=== PATIENT | female | born 1980 | race Caucasian/White ===

== ENCOUNTER 2023-03-30 04:20 | Inpatient (IN) | payer OTHER ==
[2023-03-28 16:52] VITALS: BMI 26.6
[2023-03-30] MEDS ORDERED: PAPAVERINE HCL 30 MG/1 ML 10 ML VIAL NR ONE ×2 (07:11→07:35)
[2023-03-30] MEDS ORDERED: BUPIVACAINE HCL/PF 0.25% (2.5MG/ML) 10 ML VIAL ONE (07:11)
[2023-03-30] MEDS ORDERED: HEPARIN NA (PORCINE) 5,000 UNITS/ML 1ML VIAL ONE (07:12)
[2023-03-30] MEDS ORDERED: BUPIVACAINE LIPOSOME/PF (EXPAREL) 266 MG/20 ML VIAL ONE (07:12)
[2023-03-30] MEDS ORDERED: HEPARIN NA (PORCINE) 5,000 UNITS/ML 1ML VIAL SQ ONE ×3 (08:00→09:00)
[2023-03-30] MEDS ORDERED: FENTANYL CITRATE/PF 50 MCG/ML VIAL ONE ×7 (08:10→15:26)
[2023-03-30] MEDS ORDERED: ROCURONIUM BROMIDE 50 MG/5 ML SYRINGE ONE ×3 (08:10→12:10)
[2023-03-30] MEDS ORDERED: PROPOFOL 20 ML ONE (08:10)
[2023-03-30] MEDS ORDERED: ceFAZolin SODIUM 1 GM VIAL IVPB ONE (08:23)
[2023-03-30] MEDS ORDERED: LABETALOL HCL 20 MG/4 ML VIAL ONE (09:12)
[2023-03-30] MEDS ORDERED: DEXAMETHASONE SOD PHOSPHATE 4 MG/1 ML VIAL ONE (10:56)
[2023-03-30] MEDS ORDERED: KETOROLAC TROMETHAMINE 30 MG/1 ML VIAL ONE (10:56)
[2023-03-30] MEDS ORDERED: ONDANSETRON 4 MG/2 ML VIAL ONE (10:56)
[2023-03-30] MEDS ORDERED: ceFAZolin SODIUM 1 GM VIAL ONE ×2 (10:56)
[2023-03-30] MEDS ORDERED: NEOSTIGMINE METHYLSULFATE 0.5 MG/1 ML - 10 ML MDV ONE (13:34)
[2023-03-30] MEDS ORDERED: GLYCOPYRROLATE 0.2 MG/1 ML VIAL ONE (13:34)
[2023-03-30] MEDS ORDERED: BUPIVACAINE LIPOSOME/PF (EXPAREL) 266 MG/20 ML VIAL NR ONE (13:42)
[2023-03-30] MEDS ORDERED: BUPIVACAINE HCL/PF 0.25% (2.5MG/ML) 10 ML VIAL IJ ONE (13:42)
[2023-03-30] MEDS ORDERED: MIDAZOLAM HCL 2 MG/2 ML SINGLE DOSE VIAL ONE (13:52)
[2023-03-30] MEDS ORDERED: diazePAM 5 MG TABLET PO PRN (14:10)
[2023-03-30] MEDS ORDERED: oxyCODONE HCL 5 MG TABLET PO PRN (14:13)
[2023-03-30] MEDS ORDERED: ONDANSETRON 4 MG/2 ML VIAL IVPUSH PRN (14:13)
[2023-03-30] MEDS ORDERED: LACTATED RINGERS SOLUTION 1,000 ML IV SCH (14:15)
[2023-03-30] MEDS: oxyCODONE HCL 5 MG TABLET PO PRN ×2 (16:20→20:45)
[2023-03-30] MEDS: DEXTROSE 5%-0.45% SALINE 1,000 ML IV SCH (16:21)
[2023-03-30] MEDS: CEFAZOLIN 1 GM in DEXTROSE 5%-WATER - 50 ML IVPB SCH (17:54)
[2023-03-30] MEDS: MUPIROCIN CA 2% TOPICAL CREAM 15 GM TUBE TP SCH (21:38)
[2023-03-30] MEDS ORDERED: DOCUSATE SODIUM 100 MG CAPSULE (FP) PO SCH (22:00)
[2023-03-30] MEDS ORDERED: SILVER SULFADIAZINE 1% TOP CREAM 50 GM JAR TP SCH (22:00)
[2023-03-30] MEDS ORDERED: ACETAMINOPHEN 1000 MG/100 ML BAG IVPB ONE (22:42)
[2023-03-31] MEDS: CEFAZOLIN 1 GM in DEXTROSE 5%-WATER - 50 ML IVPB SCH ×3 (00:05→11:00)
[2023-03-31] MEDS: oxyCODONE HCL 5 MG TABLET PO PRN ×3 (02:10→12:50)
[2023-03-31 08:34] LABS: BASO % 0.3 % (0-2.0); EOS % 5.2 % (0-4.5); HEMATOCRIT 27.6 % (32.4-45.2); HEMOGLOBIN 8.9 GM/dL (10.7-15.3); MCH 24.8 pg (25.7-33.7); MCHC 32.3 g/dl (32.0-36.0); MEAN CELL VOLUME 76.6 fl (80-96); MEAN PLT VOLUME 7.9 fl (7.5-11.1); MONO % 10.2 % (3.8-10.2); NEUT % 67.3 % (42.8-82.8); PLATELET COUNT 264 10^3/uL (134-434); RBC 3.61 M/mm3 (3.60-5.2); WHITE BLOOD COUNT 4.9 K/mm3 (4.0-10.0)
[2023-03-31 08:37] LABS: POTASSIUM 3.6 mmol/L (3.5-5.1)
[2023-03-31 08:41] LABS: CALCIUM 7.8 mg/dL (8.5-10.1)
[2023-03-31 08:42] LABS: ALBUMIN 2.6 g/dl (3.4-5.0); BLOOD UREA NITROGEN 7.2 mg/dL (7-18); MAGNESIUM 1.9 mg/dL (1.8-2.4)
[2023-03-31 08:45] LABS: CREATININE 0.6 mg/dL (0.55-1.3); PHOSPHOROUS 4.3 mg/dL (2.5-4.9)
[2023-03-31 08:46] LABS: BILIRUBIN,TOTAL 1.1 mg/dL (0.2-1); TOT PROT 6.2 g/dl (6.4-8.2)
[2023-03-31] MEDS: ANASTROZOLE 1 MG TABLET PO SCH (09:43)
[2023-03-31] MEDS: ASPIRIN 325 MG TABLET PO SCH (09:43)
[2023-03-31] MEDS: DOCUSATE SODIUM 100 MG CAPSULE (FP) PO SCH (09:44)
[2023-03-31] MEDS: FERROUS SO4 325 MG TABLET (FP) PO SCH (09:44)
[2023-03-31] MEDS: ENOXAPARIN NA (PORCINE) 40 MG/0.4 ML DISP.SYRIN SQ SCH (09:44)
[2023-03-31] MEDS: MUPIROCIN CA 2% TOPICAL CREAM 15 GM TUBE TP SCH ×2 (09:44→21:48)
[2023-03-31 10:46] LABS: HEMOGLOBIN 8.9 GM/dL (10.7-15.3); MCH 25.1 pg (25.7-33.7); MCHC 32.9 g/dl (32.0-36.0); MEAN CELL VOLUME 76.3 fl (80-96); MEAN PLT VOLUME 7.3 fl (7.5-11.1); PLATELET COUNT 261 10^3/uL (134-434); RBC 3.53 M/mm3 (3.60-5.2); RDW 19.9 % (11.6-15.6); WHITE BLOOD COUNT 4.5 K/mm3 (4.0-10.0)
[2023-03-31] MEDS: DEXTROSE 5%-0.45% SALINE 1,000 ML IV SCH (18:50)
[2023-04-01] MEDS: oxyCODONE HCL 5 MG TABLET PO PRN ×6 (00:09→21:39)
[2023-04-01] MEDS: DEXTROSE 5%-0.45% SALINE 1,000 ML IV SCH ×2 (02:51→19:34)
[2023-04-01 06:37] LABS: BASO % 0.4 % (0-2.0); EOS % 4.4 % (0-4.5); HEMATOCRIT 27.8 % (32.4-45.2); LYMPH % 13.3 % (8-40); MCH 24.9 pg (25.7-33.7); MCHC 32.3 g/dl (32.0-36.0); MEAN PLT VOLUME 7.6 fl (7.5-11.1); MONO % 9.1 % (3.8-10.2); NEUT % 72.8 % (42.8-82.8); PLATELET COUNT 268 10^3/uL (134-434); RBC 3.61 M/mm3 (3.60-5.2); RDW 19.7 % (11.6-15.6); WHITE BLOOD COUNT 6.3 K/mm3 (4.0-10.0)
[2023-04-01 06:52] LABS: POTASSIUM 3.4 mmol/L (3.5-5.1)
[2023-04-01 06:56] LABS: ALBUMIN 2.6 g/dl (3.4-5.0); BLOOD UREA NITROGEN 5.5 mg/dL (7-18); CALCIUM 7.7 mg/dL (8.5-10.1); MAGNESIUM 1.7 mg/dL (1.8-2.4)
[2023-04-01 07:00] LABS: CREATININE 0.5 mg/dL (0.55-1.3); PHOSPHOROUS 3.6 mg/dL (2.5-4.9)
[2023-04-01 07:01] LABS: BILIRUBIN,TOTAL 1.1 mg/dL (0.2-1); TOT PROT 6.3 g/dl (6.4-8.2)
[2023-04-01] MEDS ORDERED: MAGNESIUM SULF 50% (8.12 MEQ/2 ML-1 GM VIAL) IVPB ONE (08:02)
[2023-04-01] MEDS: KCL 10 MEQ IVPB 10 MEQ/100 ML INFUS.BAG IVPB SCH ×4 (09:05→19:02)
[2023-04-01] MEDS: DOCUSATE SODIUM 100 MG CAPSULE (FP) PO SCH (09:10)
[2023-04-01] MEDS: ANASTROZOLE 1 MG TABLET PO SCH (09:10)
[2023-04-01] MEDS: ASPIRIN 325 MG TABLET PO SCH (09:10)
[2023-04-01] MEDS: FERROUS SO4 325 MG TABLET (FP) PO SCH (09:10)
[2023-04-01] MEDS: ENOXAPARIN NA (PORCINE) 40 MG/0.4 ML DISP.SYRIN SQ SCH (09:11)
[2023-04-01] MEDS: POLYETHYLENE GLYCOL (HEALTHYLAX) 3350 17 GM PACKET PO SCH (09:29)
[2023-04-01] MEDS: MUPIROCIN CA 2% TOPICAL CREAM 15 GM TUBE TP SCH ×2 (14:24→21:38)
[2023-04-01] MEDS ORDERED: POTASSIUM CHLORIDE TABS 20 MEQ TABLET.ER (FP) PO ONE (16:30)
[2023-04-02] MEDS: oxyCODONE HCL 5 MG TABLET PO PRN ×3 (05:48→22:14)
[2023-04-02] MEDS: ANASTROZOLE 1 MG TABLET PO SCH (10:00)
[2023-04-02] MEDS: DOCUSATE SODIUM 100 MG CAPSULE (FP) PO SCH (10:01)
[2023-04-02] MEDS: FERROUS SO4 325 MG TABLET (FP) PO SCH (10:01)
[2023-04-02] MEDS: ENOXAPARIN NA (PORCINE) 40 MG/0.4 ML DISP.SYRIN SQ SCH (10:01)
[2023-04-02] MEDS: ASPIRIN 325 MG TABLET PO SCH (10:01)
[2023-04-02] MEDS: POLYETHYLENE GLYCOL (HEALTHYLAX) 3350 17 GM PACKET PO SCH (10:02)
[2023-04-02] MEDS: MUPIROCIN CA 2% TOPICAL CREAM 15 GM TUBE TP SCH (10:04)
[2023-04-02] MEDS ORDERED: oxyCODONE HCL 5 MG TABLET PO PRN (13:08)
[2023-04-02] MEDS ORDERED: diazePAM 5 MG TABLET PO PRN (13:08)
[2023-04-02] MEDS ORDERED: ACETAMINOPHEN 325 MG TABLET (FP) PO PRN (13:58)
[2023-04-03] MEDS: oxyCODONE HCL 5 MG TABLET PO PRN ×2 (07:45→13:29)
[2023-04-03] MEDS ORDERED: ENOXAPARIN NA (PORCINE) 40 MG/0.4 ML DISP.SYRIN SQ SCH (10:00)
[2023-04-03] MEDS ORDERED: DOCUSATE SODIUM 100 MG CAPSULE (FP) PO SCH (10:00)
[2023-04-03] MEDS ORDERED: ANASTROZOLE 1 MG TABLET PO SCH (10:00)
[2023-04-03] MEDS ORDERED: FERROUS SO4 325 MG TABLET (FP) PO SCH (10:00)
[2023-04-03] MEDS ORDERED: ASPIRIN 325 MG TABLET PO SCH (10:00)
[2023-04-03] MEDS: POLYETHYLENE GLYCOL (HEALTHYLAX) 3350 17 GM PACKET PO SCH (10:21)
[2023-04-03 13:43] VITALS: BP 119/73; PULSE 73; RESP 18; TEMP 98.3
== END 2023-04-03 14:59 | disposition home or self-care (01) | DRG 850 ==
LOC: J2C 04:20 → JICU 16:17 → J4S 04-02 12:26
PROVIDERS: ADMIT Plastic Surgery; ATTEND Plastic Surgery
PROC: 0HRU077 Replacement of Left Breast using Deep Inferior Epigastric Artery Perforator Flap, Open Approach (ICD-10-PCS; 2023-03-30)
PROC: 0HPU0NZ Removal of Tissue Expander from Left Breast, Open Approach (ICD-10-PCS; 2023-03-30)
PROC: 0HPT0NZ Removal of Tissue Expander from Right Breast, Open Approach (ICD-10-PCS; 2023-03-30)
PROC: 07B80ZX Excision of Right Internal Mammary Lymphatic, Open Approach, Diagnostic (ICD-10-PCS; 2023-03-30)
PROC: 07B90ZX Excision of Left Internal Mammary Lymphatic, Open Approach, Diagnostic (ICD-10-PCS; 2023-03-30)
PROC: 0PB10ZZ Excision of 1 to 2 Ribs, Open Approach (ICD-10-PCS; 2023-03-30)
PROC: 0HRT077 Replacement of Right Breast using Deep Inferior Epigastric Artery Perforator Flap, Open Approach (ICD-10-PCS; principal; 2023-03-30 08:00)
DX: T85.898A Other specified complication of other internal prosthetic devices, implants and grafts, initial encounter (principal); C50.919 Malignant neoplasm of unspecified site of unspecified female breast; R52 Pain, unspecified; Y83.9 Surgical procedure, unspecified as the cause of abnormal reaction of the patient, or of later complication, without mention of misadventure at the time of the procedure
CPT/HCPCS: 36415; 80053; 81025; 83735; 84100; 85025; 85027; 86850; 86900; 86901; 87635; 88300-TC; 88304-TC; 88307-TC; 93005; 93010; 94760; 97116-GP; 97162-GP; J1644

== ENCOUNTER 2024-07-24 10:06 | Day surgery (SDC) | payer OTHER ==
[2024-07-22 14:49] VITALS: BMI 24.7
[2024-07-24] MEDS ORDERED: SODIUM BICARBONATE 8.4% 50 MEQ/50 ML VIAL ONE (10:42)
[2024-07-24] MEDS ORDERED: LIDOCAINE HCL 2% (20ML MULTI-DOSE VIAL) ONE ×2 (10:43→12:41)
[2024-07-24] MEDS ORDERED: BUPIVACAINE HCL/EPINEPHRINE/PF 30 ML VIAL IJ ONE (10:43)
[2024-07-24] MEDS ORDERED: EPINEPHrine 1:1000 P/F - 1 MG/ML AMP ONE ×2 (10:43→12:43)
[2024-07-24] MEDS ORDERED: MIDAZOLAM HCL 2 MG/2 ML SINGLE DOSE VIAL ONE (10:43)
[2024-07-24] MEDS ORDERED: PROPOFOL 20 ML ONE ×3 (10:43→13:53)
[2024-07-24] MEDS ORDERED: ROCURONIUM BROMIDE 50 MG/5 ML SYRINGE ONE ×2 (11:19→12:31)
[2024-07-24] MEDS ORDERED: ACETAMINOPHEN INJECTION 100 ML ONE (11:22)
[2024-07-24] MEDS ORDERED: LIDOCAINE HCL/PF 2% SDV 5ML VIAL ONE (11:41)
[2024-07-24] MEDS ORDERED: DEXAMETHASONE SOD PHOSPHATE 4 MG/1 ML VIAL ONE (11:57)
[2024-07-24] MEDS ORDERED: KETOROLAC TROMETHAMINE 30 MG/1 ML VIAL ONE (11:57)
[2024-07-24] MEDS ORDERED: ONDANSETRON 4 MG/2 ML VIAL ONE (11:57)
[2024-07-24] MEDS ORDERED: SUGAMMADEX SODIUM 200 MG/2 ML VIAL ONE (13:22)
[2024-07-24] MEDS ORDERED: FENTANYL CITRATE/PF 50 MCG/ML VIAL ONE ×2 (14:20→14:36)
[2024-07-24] MEDS ORDERED: oxyCODONE HCL 5 MG TABLET PO PRN (14:39)
[2024-07-24] MEDS ORDERED: LACTATED RINGERS SOLUTION 1,000 ML IV SCH (14:45)
[2024-07-24 15:42] VITALS: RESP 18; TEMP 97.7
[2024-07-24 16:46] VITALS: BP 125/80; PULSE 69
== END 2024-07-24 16:36 | disposition home or self-care (01) ==
LOC: FASU 10:06
PROVIDERS: ATTEND Plastic Surgery
PROC: 0HX5XZZ Transfer Chest Skin, External Approach (ICD-10-PCS; 2024-07-24)
PROC: 0HRV37Z Replacement of Bilateral Breast with Autologous Tissue Substitute, Percutaneous Approach (ICD-10-PCS; 2024-07-24)
PROC: 0HB7XZZ Excision of Abdomen Skin, External Approach (ICD-10-PCS; 2024-07-24)
PROC: 0HRV07Z Replacement of Bilateral Breast with Autologous Tissue Substitute, Open Approach (ICD-10-PCS; principal; 2024-07-24 12:06)
DX: Z85.3 Personal history of malignant neoplasm of breast (principal); Z90.13 Acquired absence of bilateral breasts and nipples; N65.0 Deformity of reconstructed breast; L90.5 Scar conditions and fibrosis of skin
CPT/HCPCS: 81025; 88305-TC; 94760; J0131

== ENCOUNTER 2025-02-17 17:24 | Emergency (ER) | payer OTHER ==
[2025-02-17 17:38] VITALS: BP 133/86; RESP 20; TEMP 97.9; BMI 25.0
[2025-02-17 18:05] VITALS: PULSE 90
[2025-02-17] MEDS ORDERED: FAMOTIDINE 20 MG TABLET ONE (18:15)
[2025-02-17] MEDS: FAMOTIDINE 20 MG TABLET PO ONE (18:18)
== END 2025-02-17 19:12 | disposition home or self-care (01) ==
LOC: JER 17:24
DX: L29.9 Pruritus, unspecified (principal); T78.02XA Anaphylactic reaction due to shellfish (crustaceans), initial encounter
CPT/HCPCS: 99283-25